=== PATIENT | female | born 1970 | race Caucasian/White ===

== ENCOUNTER 2018-01-19 04:45 | Inpatient (IN) | payer BC ==
[2018-01-19] MEDS ORDERED: NITROGLYCERIN (SL) 0.4 MG TAB SL (06:30)
[2018-01-19] MEDS ORDERED: NACL 0.9% 3 ML SYG IV (06:30)
[2018-01-19] MEDS ORDERED: ACETAMINOPHEN 325 MG TAB PO (06:30)
[2018-01-19] MEDS ORDERED: morphine 2 MG INJ IV (06:30)
[2018-01-19] MEDS ORDERED: LORAZEPAM 2 MG INJ IV (06:30)
[2018-01-19 07:50] LABS: ADD MAN DIFF? NO
[2018-01-19 07:57] LABS: BASOPHILS % 0.3 % (0.0-2.0); EOSINOPHILS % 0.2 % (0.0-7.0); HEMATOCRIT 37.6 % (37.0-47.0); HEMOGLOBIN 12.6 g/dl (12.0-16.0); LYMPHOCYTES # 1.2 10^3/ul (0.8-2.9); MEAN CORPUSCULAR HEMOGLOBIN 30.9 pg (29.0-33.0); MEAN CORPUSCULAR HGB CONC 33.5 g/dl (32.0-37.0); MEAN CORPUSCULAR VOLUME 92.2 fl (82.0-101.0); MEAN PLATELET VOLUME 11.6 fl (7.4-10.4); MONOCYTE # 0.8 10^3/ul (0.3-0.9); MONOCYTES % 5.1 % (0.0-11.0); NEUTROPHIL # 13.4 10^3/ul (1.6-7.5); PLATELET COUNT 228 10^3/UL (140-415); RED BLOOD COUNT 4.08 10^6/ul (4.20-5.40); RED CELL DISTRIBUTION WIDTH 12.1 % (11.5-14.5)
[2018-01-19 07:57] LABS: WHITE BLOOD COUNT 15.6 10^3/ul (4.8-10.8)
[2018-01-19 08:13] LABS: HEMOGLOBIN A1C 5.7 % (0-5.9)
[2018-01-19 08:20] LABS: ALANINE AMINOTRANSFERASE 29 IU/L (13-69); ALBUMIN 3.8 g/dl (3.3-4.9); ALBUMIN/GLOBULIN RATIO 1.22; ALKALINE PHOSPHATASE 69 IU/L (42-121); ANION GAP 15 (8-16); ASPARTATE AMINO TRANSFERASE 18 IU/L (15-46); BILIRUBIN,INDIRECT 0.3 mg/dl (0-1.1); BILIRUBIN,TOTAL 0.3 mg/dl (0.2-1.3); BLOOD UREA NITROGEN 15 mg/dl (7-20); CARBON DIOXIDE 25 mmol/L (21-31); CHLORIDE 107 mmol/L (97-110); CHOL/HDL RATIO 4.2 RATIO; CHOLESTEROL 165 mg/dl (100-200); CREATINE KINASE 61 IU/L (23-200); CREATININE 0.86 mg/dl (0.44-1.00); GLUCOSE 109 mg/dl (70-220); HDL CHOLESTEROL 39 mg/dl (34-88); LDL CHOLESTEROL,CALCULATED 98 mg/dl; MAGNESIUM 1.6 mg/dl (1.7-2.5); POTASSIUM 3.5 mmol/L (3.5-5.1); SODIUM 143 mmol/L (135-144); TOTAL PROTEIN 6.9 g/dl (6.1-8.1); TRIGLYCERIDES 139 mg/dl (0-149)
[2018-01-19 08:22] LABS: ETHANOL < 10.0 mg/dl
[2018-01-19 08:30] LABS: CK INDEX 0.9; CK-MB 0.52 ng/ml (0.0-2.4)
[2018-01-19 08:32] LABS: TROPONIN-I < 0.012 ng/ml (0.000-0.120)
[2018-01-19] MEDS: PANTOPRAZOLE 40 MG INJ IV ×2 (10:02→17:33)
[2018-01-19] MEDS: ONDANSETRON 4 MG INJ IV ×3 (10:02→18:37)
[2018-01-19] MEDS: morphine LIQ (10 MG/5 ML) CUP PO ×3 (10:03→17:33)
[2018-01-19 12:21] LABS: ADD MAN DIFF? NO
[2018-01-19 12:33] LABS: BASOPHILS % 0.2 % (0.0-2.0); EOSINOPHILS % 0.1 % (0.0-7.0); HEMATOCRIT 38.1 % (37.0-47.0); LYMPHOCYTES # 1.3 10^3/ul (0.8-2.9); LYMPHOCYTES % 8.2 % (15.0-51.0); MEAN CORPUSCULAR HGB CONC 34.1 g/dl (32.0-37.0); MEAN CORPUSCULAR VOLUME 90.7 fl (82.0-101.0); MEAN PLATELET VOLUME 11.1 fl (7.4-10.4); MONOCYTE # 0.7 10^3/ul (0.3-0.9); MONOCYTES % 4.6 % (0.0-11.0); NEUTROPHIL # 13.5 10^3/ul (1.6-7.5); NEUTROPHILS % 86.6 % (39.0-77.0); PLATELET COUNT 224 10^3/UL (140-415); RED CELL DISTRIBUTION WIDTH 12.2 % (11.5-14.5)
[2018-01-19 12:33] LABS: WHITE BLOOD COUNT 15.6 10^3/ul (4.8-10.8)
[2018-01-19 12:41] LABS: CREATINE KINASE 59 IU/L (23-200)
[2018-01-19 12:54] LABS: CK INDEX 0.8; CK-MB 0.45 ng/ml (0.0-2.4)
[2018-01-19 13:06] LABS: TROPONIN-I < 0.012 ng/ml (0.000-0.120)
[2018-01-19] MEDS: LOSARTAN 25 MG TAB PO (14:02)
[2018-01-19] MEDS: MAGNESIUM CITRATE 300 ML BTL PO (18:53)
[2018-01-19] MEDS: LACTULOSE 30ML CUP PO ×2 (18:57→21:49)
[2018-01-19 19:11] LABS: ADD MAN DIFF? NO
[2018-01-19 19:13] LABS: BASOPHILS % 0.1 % (0.0-2.0); EOSINOPHILS % 0.1 % (0.0-7.0); HEMATOCRIT 37.3 % (37.0-47.0); HEMOGLOBIN 12.8 g/dl (12.0-16.0); LYMPHOCYTES # 1.4 10^3/ul (0.8-2.9); LYMPHOCYTES % 9.3 % (15.0-51.0); MEAN CORPUSCULAR HEMOGLOBIN 31.1 pg (29.0-33.0); MEAN CORPUSCULAR HGB CONC 34.3 g/dl (32.0-37.0); MEAN CORPUSCULAR VOLUME 90.8 fl (82.0-101.0); MEAN PLATELET VOLUME 11.5 fl (7.4-10.4); MONOCYTE # 0.9 10^3/ul (0.3-0.9); MONOCYTES % 6.1 % (0.0-11.0); NEUTROPHIL # 12.2 10^3/ul (1.6-7.5); NEUTROPHILS % 84.1 % (39.0-77.0); PLATELET COUNT 227 10^3/UL (140-415); RED BLOOD COUNT 4.11 10^6/ul (4.20-5.40); RED CELL DISTRIBUTION WIDTH 12.1 % (11.5-14.5)
[2018-01-19 19:13] LABS: WHITE BLOOD COUNT 14.5 10^3/ul (4.8-10.8)
[2018-01-19 22:23] LABS: OCCULT BLOOD STOOL POSITIVE (NEGATIVE)
[2018-01-20] MEDS: LACTULOSE 30ML CUP PO ×8 (00:56→17:26)
[2018-01-20] MEDS: hydrALAzine 20 MG INJ IV (00:56)
[2018-01-20] MEDS: morphine LIQ (10 MG/5 ML) CUP PO ×4 (00:57→21:06)
[2018-01-20] MEDS: PANTOPRAZOLE 40 MG INJ IV ×2 (06:12→17:58)
[2018-01-20] MEDS: LOSARTAN 25 MG TAB PO (08:56)
[2018-01-20] MEDS: REGADENOSON 0.4 MG/5 ML SYG (11:20)
[2018-01-20] MEDS: ONDANSETRON 4 MG INJ IV (12:19)
[2018-01-20] MEDS: SOD CHLORIDE 0.9% 1,000 ML IV (16:30)
[2018-01-20] MEDS: PROPOFOL 40 ML (18:38)
[2018-01-20] MEDS ORDERED: EPHEDrine SULFATE 50 MG/5 ML SYG IV (19:00)
[2018-01-20] MEDS ORDERED: hydrALAzine 20 MG INJ IV (19:00)
[2018-01-20] MEDS ORDERED: MIDAZOLAM 1 MG/ML 2 ML INJ IV (19:00)
[2018-01-20] MEDS ORDERED: LABETALOL HCL 20MG INJ IV (19:00)
[2018-01-20] MEDS ORDERED: ONDANSETRON 4 MG INJ IV (19:00)
[2018-01-20] MEDS ORDERED: METOCLOPRAMIDE 10 MG INJ IV (19:00)
[2018-01-20] MEDS ORDERED: FENTAnyl 50 MCG/ML VIAL IV ×3 (19:00)
[2018-01-20] MEDS ORDERED: OXYCODONE/ACETAMINOPHEN (5/325) TAB PO ×2 (19:00)
[2018-01-20] MEDS ORDERED: MEPERIDINE 25 MG INJ IV (19:00)
[2018-01-20] MEDS ORDERED: DIPHENHYDRAMINE 50 MG INJ IV (19:00)
[2018-01-20] MEDS: CIPROFLOXACIN 400MG/D5W 200 ML IVPB (21:05)
[2018-01-20] MEDS: metroNIDAZOLE 500 MG/NS (PMX) 100 ML IVPB (21:05)
[2018-01-20] MEDS: HYDROmorphONE 0.5 MG/0.5 ML SYG IV (22:09)
[2018-01-20 22:50] LABS: LACTIC ACID 1.3 mmol/L (0.5-2.0)
[2018-01-21] MEDS: LACTULOSE 30ML CUP PO ×7 (03:00→17:54)
[2018-01-21] MEDS: morphine LIQ (10 MG/5 ML) CUP PO ×2 (03:08→06:55)
[2018-01-21] MEDS: PANTOPRAZOLE 40 MG INJ IV ×2 (05:26→17:50)
[2018-01-21] MEDS: metroNIDAZOLE 500 MG/NS (PMX) 100 ML IVPB ×3 (05:26→21:03)
[2018-01-21 07:35] LABS: ADD MAN DIFF? NO
[2018-01-21 07:38] LABS: BASOPHIL # 0.1 10^3/ul (0.0-0.1); BASOPHILS % 0.3 % (0.0-2.0); EOSINOPHILS # 0.1 10^3/ul (0.0-0.5); EOSINOPHILS % 0.7 % (0.0-7.0); HEMATOCRIT 39.3 % (37.0-47.0); HEMOGLOBIN 13.4 g/dl (12.0-16.0); LYMPHOCYTES % 11.2 % (15.0-51.0); MEAN CORPUSCULAR HEMOGLOBIN 31.5 pg (29.0-33.0); MEAN CORPUSCULAR HGB CONC 34.1 g/dl (32.0-37.0); MEAN CORPUSCULAR VOLUME 92.3 fl (82.0-101.0); MEAN PLATELET VOLUME 11.4 fl (7.4-10.4); MONOCYTE # 0.9 10^3/ul (0.3-0.9); MONOCYTES % 5.3 % (0.0-11.0); NEUTROPHIL # 14.4 10^3/ul (1.6-7.5); NEUTROPHILS % 82.1 % (39.0-77.0); PLATELET COUNT 211 10^3/UL (140-415); RED BLOOD COUNT 4.26 10^6/ul (4.20-5.40); RED CELL DISTRIBUTION WIDTH 12.5 % (11.5-14.5)
[2018-01-21 07:38] LABS: WHITE BLOOD COUNT 17.6 10^3/ul (4.8-10.8)
[2018-01-21 08:08] LABS: PHOSPHORUS 2.7 mg/dl (2.5-4.9)
[2018-01-21 08:10] LABS: ALANINE AMINOTRANSFERASE 21 IU/L (13-69); ALBUMIN 3.4 g/dl (3.3-4.9); ALBUMIN/GLOBULIN RATIO 1.13; ALKALINE PHOSPHATASE 62 IU/L (42-121); ANION GAP 11 (8-16); ASPARTATE AMINO TRANSFERASE 14 IU/L (15-46); BILIRUBIN,INDIRECT 0.6 mg/dl (0-1.1); BILIRUBIN,TOTAL 0.6 mg/dl (0.2-1.3); BLOOD UREA NITROGEN 9 mg/dl (7-20); CALCIUM 8.2 mg/dl (8.4-10.2); CARBON DIOXIDE 29 mmol/L (21-31); CHLORIDE 107 mmol/L (97-110); CREATININE 0.77 mg/dl (0.44-1.00); GLUCOSE 93 mg/dl (70-220); POTASSIUM 3.4 mmol/L (3.5-5.1); SODIUM 144 mmol/L (135-144); TOTAL PROTEIN 6.4 g/dl (6.1-8.1)
[2018-01-21] MEDS: LOSARTAN 25 MG TAB PO (09:21)
[2018-01-21] MEDS: HYDROmorphONE 0.5 MG/0.5 ML SYG IV ×3 (09:21→17:51)
[2018-01-21] MEDS: CIPROFLOXACIN 400MG/D5W 200 ML IVPB ×2 (09:25→22:17)
[2018-01-21 10:04] LABS: ADD UMIC NO; UR ASCORBIC ACID NEGATIVE (NEGATIVE); UR BILIRUBIN (Dip) NEGATIVE (NEGATIVE); UR BLOOD (Dip) NEGATIVE (NEGATIVE); UR CLARITY CLEAR (CLEAR); UR COLOR YELLOW (YELLOW); UR GLUCOSE (Dip) NEGATIVE (NEGATIVE); UR KETONES (Dip) NEGATIVE (NEGATIVE); UR LEUKOCYTE ESTERASE (Dip) NEGATIVE Leu/ul (NEGATIVE); UR NITRITE (Dip) NEGATIVE (NEGATIVE); UR SPECIFIC GRAVITY (Dip) 1.013 (1.003-1.030); UR TOTAL PROTEIN (Dip) NEGATIVE (NEGATIVE); UR UROBILINOGEN (Dip) NEGATIVE (NEGATIVE)
[2018-01-21] MEDS: IOHEXOL 100 ML (10:04)
[2018-01-21] MEDS: SOD CHLORIDE 0.9% 100 ML (10:04)
[2018-01-21 10:22] LABS: BARBITURATES Negative (NEGATIVE); BENZODIAZEPINES Negative (NEGATIVE); CANNABINOIDS Negative (NEGATIVE); COCAINE Negative (NEGATIVE); OPIATES Positive (NEGATIVE)
[2018-01-21 10:31] LABS: AMPHETAMINE/METHAMPHETAMINE POSITIVE (NEGATIVE)
[2018-01-21] MEDS: ONDANSETRON 4 MG INJ IV ×2 (13:34→17:51)
[2018-01-21] MEDS: POTASSIUM CHLORIDE (SR) 20 MEQ TAB PO (13:34)
[2018-01-22] MEDS: metroNIDAZOLE 500 MG/NS (PMX) 100 ML IVPB ×3 (05:36→21:29)
[2018-01-22] MEDS: PANTOPRAZOLE 40 MG INJ IV ×2 (05:37→17:11)
[2018-01-22 06:38] LABS: ADD MAN DIFF? NO
[2018-01-22 06:53] LABS: WHITE BLOOD COUNT 10.3 10^3/ul (4.8-10.8)
[2018-01-22 06:53] LABS: BASOPHILS % 0.4 % (0.0-2.0); EOSINOPHILS # 0.2 10^3/ul (0.0-0.5); EOSINOPHILS % 1.7 % (0.0-7.0); HEMATOCRIT 35.1 % (37.0-47.0); HEMOGLOBIN 11.9 g/dl (12.0-16.0); LYMPHOCYTES # 1.2 10^3/ul (0.8-2.9); MEAN CORPUSCULAR HEMOGLOBIN 31.4 pg (29.0-33.0); MEAN CORPUSCULAR HGB CONC 33.9 g/dl (32.0-37.0); MEAN CORPUSCULAR VOLUME 92.6 fl (82.0-101.0); MEAN PLATELET VOLUME 11.5 fl (7.4-10.4); MONOCYTE # 0.7 10^3/ul (0.3-0.9); MONOCYTES % 6.3 % (0.0-11.0); NEUTROPHIL # 8.1 10^3/ul (1.6-7.5); NEUTROPHILS % 79.3 % (39.0-77.0); PLATELET COUNT 199 10^3/UL (140-415); RED BLOOD COUNT 3.79 10^6/ul (4.20-5.40); RED CELL DISTRIBUTION WIDTH 12.2 % (11.5-14.5)
[2018-01-22 07:24] LABS: PHOSPHORUS 3.1 mg/dl (2.5-4.9)
[2018-01-22 07:24] LABS: MAGNESIUM 1.9 mg/dl (1.7-2.5)
[2018-01-22 07:31] LABS: ANION GAP 12 (8-16); BLOOD UREA NITROGEN 10 mg/dl (7-20); CALCIUM 8.5 mg/dl (8.4-10.2); CARBON DIOXIDE 29 mmol/L (21-31); CHLORIDE 107 mmol/L (97-110); CREATININE 0.88 mg/dl (0.44-1.00); GLUCOSE 97 mg/dl (70-220); POTASSIUM 3.6 mmol/L (3.5-5.1); SODIUM 144 mmol/L (135-144)
[2018-01-22] MEDS: CIPROFLOXACIN 400MG/D5W 200 ML IVPB ×2 (09:09→20:21)
[2018-01-22] MEDS: LOSARTAN 25 MG TAB PO (09:09)
[2018-01-22] MEDS: HYDROmorphONE 0.5 MG/0.5 ML SYG IV (11:30)
[2018-01-22] MEDS: HYDROmorphONE 2 MG TAB PO ×2 (17:46→21:29)
[2018-01-23] MEDS: HYDROmorphONE 2 MG TAB PO ×3 (01:30→09:50)
[2018-01-23 05:27] LABS: ADD MAN DIFF? NO
[2018-01-23] MEDS: metroNIDAZOLE 500 MG/NS (PMX) 100 ML IVPB (05:30)
[2018-01-23] MEDS: PANTOPRAZOLE 40 MG INJ IV (05:30)
[2018-01-23 05:31] LABS: BASOPHILS % 0.4 % (0.0-2.0); EOSINOPHILS # 0.2 10^3/ul (0.0-0.5); EOSINOPHILS % 2.6 % (0.0-7.0); HEMOGLOBIN 10.7 g/dl (12.0-16.0); LYMPHOCYTES # 1.7 10^3/ul (0.8-2.9); LYMPHOCYTES % 23.5 % (15.0-51.0); MEAN CORPUSCULAR HGB CONC 33.4 g/dl (32.0-37.0); MEAN CORPUSCULAR VOLUME 92.8 fl (82.0-101.0); MEAN PLATELET VOLUME 11.3 fl (7.4-10.4); MONOCYTE # 0.5 10^3/ul (0.3-0.9); MONOCYTES % 7.4 % (0.0-11.0); NEUTROPHIL # 4.6 10^3/ul (1.6-7.5); NEUTROPHILS % 65.8 % (39.0-77.0); PLATELET COUNT 195 10^3/UL (140-415); RED BLOOD COUNT 3.45 10^6/ul (4.20-5.40); RED CELL DISTRIBUTION WIDTH 12.4 % (11.5-14.5)
[2018-01-23 05:45] LABS: MAGNESIUM 1.8 mg/dl (1.7-2.5)
[2018-01-23 05:45] LABS: PHOSPHORUS 3.6 mg/dl (2.5-4.9)
[2018-01-23 05:48] LABS: ALANINE AMINOTRANSFERASE 22 IU/L (13-69); ALBUMIN 3.1 g/dl (3.3-4.9); ALKALINE PHOSPHATASE 58 IU/L (42-121); ANION GAP 14 (8-16); ASPARTATE AMINO TRANSFERASE 13 IU/L (15-46); BILIRUBIN,INDIRECT 0.2 mg/dl (0-1.1); BILIRUBIN,TOTAL 0.2 mg/dl (0.2-1.3); BLOOD UREA NITROGEN 10 mg/dl (7-20); CALCIUM 8.4 mg/dl (8.4-10.2); CARBON DIOXIDE 28 mmol/L (21-31); CHLORIDE 108 mmol/L (97-110); GLUCOSE 103 mg/dl (70-220); POTASSIUM 3.6 mmol/L (3.5-5.1); SODIUM 146 mmol/L (135-144); TOTAL PROTEIN 5.9 g/dl (6.1-8.1)
[2018-01-23] MEDS: LOSARTAN 25 MG TAB PO (09:04)
[2018-01-23] MEDS: CIPROFLOXACIN 400MG/D5W 200 ML IVPB (10:09)
== END 2018-01-23 13:30 | disposition home or self-care (01) | DRG 378 ==
LOC: PP2 01-23 00:22 → MS4 04:45
PROC: 0DB68ZX Excision of Stomach, Via Natural or Artificial Opening Endoscopic, Diagnostic (ICD-10-PCS; principal; 2018-01-20 17:00)
PROC: 0DBM8ZX Excision of Descending Colon, Via Natural or Artificial Opening Endoscopic, Diagnostic (ICD-10-PCS; 2018-01-20 17:00)
PROC: 0DBL8ZX Excision of Transverse Colon, Via Natural or Artificial Opening Endoscopic, Diagnostic (ICD-10-PCS; 2018-01-20 17:00)
DX: K92.1 Melena (principal); A09 Infectious gastroenteritis and colitis, unspecified; R07.89 Other chest pain; I10 Essential (primary) hypertension; K21.0 Gastro-esophageal reflux disease with esophagitis; F15.10 Other stimulant abuse, uncomplicated
CPT/HCPCS: 75635; 78452; 80048; 80053; 80061; 80307; 81003; 82270; 82550; 82553; 83036; 83605; 83735; 84100; 84443; 84484; 85025; 86674; 87045; 87177; 87205; 88305; 88312; 88313; 93005; 93017; 93306; 99217; G0378

== ENCOUNTER 2018-02-16 11:28 | Emergency (ER) | payer BC ==
[2018-02-16 12:41] LABS: ADD MAN DIFF? NO
[2018-02-16] MEDS: FAMOTIDINE 20 MG INJ IV (12:45)
[2018-02-16] MEDS: SOD CHLORIDE 0.9% 1,000 ML IV (12:45)
[2018-02-16] MEDS: ONDANSETRON 4 MG INJ IV (12:45)
[2018-02-16 12:46] LABS: BASOPHILS % 0.8 % (0.0-2.0); EOSINOPHILS # 0.2 10^3/ul (0.0-0.5); HEMATOCRIT 38.6 % (37.0-47.0); HEMOGLOBIN 13.2 g/dl (12.0-16.0); LYMPHOCYTES # 1.9 10^3/ul (0.8-2.9); LYMPHOCYTES % 37.5 % (15.0-51.0); MEAN CORPUSCULAR HEMOGLOBIN 31.3 pg (29.0-33.0); MEAN CORPUSCULAR HGB CONC 34.2 g/dl (32.0-37.0); MEAN CORPUSCULAR VOLUME 91.5 fl (82.0-101.0); MEAN PLATELET VOLUME 11.1 fl (7.4-10.4); MONOCYTE # 0.6 10^3/ul (0.3-0.9); NEUTROPHIL # 2.4 10^3/ul (1.6-7.5); NEUTROPHILS % 47.5 % (39.0-77.0); PLATELET COUNT 197 10^3/UL (140-415); RED BLOOD COUNT 4.22 10^6/ul (4.20-5.40)
[2018-02-16 12:50] LABS: ADD UMIC YES; UR ASCORBIC ACID 20 mg/dL (NEGATIVE); UR BACTERIA FEW /HPF (NONE SEEN); UR BILIRUBIN (Dip) NEGATIVE (NEGATIVE); UR BLOOD (Dip) NEGATIVE (NEGATIVE); UR CALCIUM OXALATE CRYSTAL FEW /HPF (NONE SEEN); UR CLARITY CLEAR (CLEAR); UR COLOR YELLOW (YELLOW); UR GLUCOSE (Dip) NEGATIVE (NEGATIVE); UR KETONES (Dip) NEGATIVE (NEGATIVE); UR LEUKOCYTE ESTERASE (Dip) TRACE Leu/ul (NEGATIVE); UR MUCUS FEW /HPF (NONE SEEN); UR NITRITE (Dip) NEGATIVE (NEGATIVE); UR RBC 20 /HPF (0-5); UR SPECIFIC GRAVITY (Dip) 1.019 (1.003-1.030); UR TOTAL PROTEIN (Dip) NEGATIVE (NEGATIVE); UR UROBILINOGEN (Dip) NEGATIVE (NEGATIVE); UR WBC 5 /HPF (0-5)
[2018-02-16 13:05] LABS: ALANINE AMINOTRANSFERASE 41 IU/L (13-69); ALBUMIN 4.5 g/dl (3.3-4.9); ALKALINE PHOSPHATASE 58 IU/L (42-121); ANION GAP 17 (8-16); ASPARTATE AMINO TRANSFERASE 27 IU/L (15-46); BILIRUBIN,INDIRECT 0.4 mg/dl (0-1.1); BILIRUBIN,TOTAL 0.4 mg/dl (0.2-1.3); BLOOD UREA NITROGEN 11 mg/dl (7-20); CALCIUM 9.6 mg/dl (8.4-10.2); CARBON DIOXIDE 28 mmol/L (21-31); CHLORIDE 103 mmol/L (97-110); CREATININE 0.82 mg/dl (0.44-1.00); GLUCOSE 86 mg/dl (70-220); LIPASE 341 U/L (23-300); POTASSIUM 3.9 mmol/L (3.5-5.1); SODIUM 144 mmol/L (135-144); TOTAL PROTEIN 7.3 g/dl (6.1-8.1)
== END 2018-02-16 14:07 | disposition home or self-care (01) ==
LOC: FTE 11:28
DX: N30.90 Cystitis, unspecified without hematuria (principal); I10 Essential (primary) hypertension; F17.210 Nicotine dependence, cigarettes, uncomplicated
CPT/HCPCS: 36415; 80053; 81001; 83690; 84703; 85025; 96374; 96375; 99284-25